=== PATIENT | female | born 1985 | race African-American/Black ===

== ENCOUNTER 2017-10-30 18:33 | Observation (INO) | payer SELFPAY ==
[2017-10-30 19:04] VITALS: BP 123/58; PULSE 57; RESP 19; TEMP 98; O2SAT 99
[2017-10-30 19:22] VITALS: BP 110/70; PULSE 69; RESP 18; O2SAT 100
--- NOTE | 2017-10-30 19:30 | PD ---
HPI Chief Complaint: Chest Pain Time Seen by Provider: 19:20 Travel History International Travel<30 days: No Contact w/Intl Traveler<30days: No Traveled to known affect area: No History of Present Illness HPI The patient is a 31 year old female who presents to the [facility] emergency department with a history of chest pain that she reports began after awakening from a nap approximately an hour and 50 minutes ago. The patient reports that the pain is in the center of her chest over sternum and radiates into bilateral breasts. She reports that the sensation is both a pressure sensation and a burning sensation. She reports that it is worse with activity. She reports having a sensation of shortness of breath with it. She reports having chronic cough related to her smoking that is no worse than usual and without any productivity. She denies having any sore throat, nasal discharge, or head congestion associated with this. The patient denies having any prior history of heart disease, hypertension, hyperlipidemia, or diabetes mellitus. She does report that she smokes 2 black and mild cigarettes daily. She reports that she also is on medical cannabis for a stress disorder. She recently moved to the area from [place]. She has not established with a local primary care physician. She denies any prior history of DVT or PE. She denies any lower extremity edema, calf pain, or erythema. On review of systems otherwise, she denies having any known recent fevers, neck pain, abdominal pain, nausea, vomiting, diarrhea, urinary symptoms, or neurologic symptoms. LMP: Ended 3 days ago. PFSH Past Medical History Narrative Medical The patient's past medical history is significant for a reported stress disorder treated with medical cannabis. Medical History: Denies Significant Hx Asthma: Yes Influenza Vaccination: No ?: Not LMP: 10/22/2017 : 0 Past Surgical History Narrative Surgical The patient's past surgical history is significant for left leg surgery at 20 years of age. Social History Alcohol Use: No Tobacco Use: Yes (BLACK AND MILDS 1-2 PER DAY) Substance Use: Yes (MARIJUANA) Allergies-Medications (Allergen,Severity, Reaction): Coded Allergies: iodine (Verified Allergy, Severe, hives, 10/30/17) Reported Meds & Prescriptions Reported Meds & Active Scripts Active No Active Prescriptions or Reported Medications Review of Systems Except as stated in HPI: all other systems reviewed are Neg General / Constitutional: No: Fever Eyes: No: Visual changes HENT: No: Headaches, Congestion Cardiovascular: Positive: Chest Pain or Discomfort, Dyspnea on exertion, No: Diaphoresis Respiratory: Positive: Cough, Shortness of Breath Gastrointestinal: No: Nausea, Vomiting, Diarrhea, Abdominal Pain Genitourinary: No: Dysuria Musculoskeletal: No: Pain Skin: No Rash Neurologic: No: Weakness, Focal Abnormalities, Change in Mentation, Slurred Speech, Sensory Disturbance Psychiatric: No: Depression Endocrine: No: Polydipsia Hematologic/Lymphatic: No: Easy Bruising Physical Exam Narrative General: The patient is a well-developed well-nourished female in no acute distress. Head and Neck exam: Head is normocephalic atraumatic. Eyes: EOMI, pupils are equal round and reactive to light. Nose: Midline septum with pink mucous membranes Mouth: Dentition unremarkable. Moist mucus membranes. Posterior oropharynx is not erythematous. No tonsillar hypertrophy. Uvula midline. Airway patent. Neck: No palpable lymphadenopathy. No nuchal rigidity. No thyromegaly. Cardiovascular: Regular rate and rhythm without murmurs, gallops, or rubs. No pulse deficit to the extremities on simultaneous auscultation and palpation of her radial artery. The patient reports chest wall tenderness on palpation along the sternum bilaterally, sternal borders. There is no step-off or crepitus. No erythema or ecchymosis. She reports the pain is similar to the pain she has been experiencing when I palpate the area. Lungs: Clear to auscultation bilaterally. No wheezes, rhonchi, or rales. Abdomen: Soft, without tenderness to palpation in all 4 quadrants of the abdomen. No guarding, rebound, or rigidity. Normal bowel sounds are audible. No tenderness on palpation of McBurney's point. Extremities: No clubbing, cyanosis, or edema. 2+ pulses in all 4 extremities. No calf tenderness on palpation. Negative Homans sign. Back: No costovertebral angle tenderness to palpation. Neurologic Exam: Grossly nonfocal. Skin Exam: No rash noted. Intact skin that is warm and dry. Data Data Last Documented VS Vital Signs Date Time Temp Pulse Resp B/P (MAP) Pulse Ox O2 Delivery O2 Flow Rate FiO2 10/30/17 19:22 69 18 110/70 (83) 100 Room Air 10/30/17 19:04 98.0 Orders Orders Electrocardiogram (10/30/17:) Complete Blood Count With Diff (10/30/17:) Comprehensive Metabolic Panel (10/30/17) Creatine Kinase (Cpk) (10/30/17:) Ckmb (Isoenzyme) Profile (10/30/17:) Troponin I (10/30/17:) B-Type Natriuretic Peptide (10/30/17:) Lipase (10/30/17:) Chest, Single Ap (10/30/17:) Iv Access Insert/Monitor (10/30/17) Ecg Monitoring (10/30/17) Oximetry (10/30/17) Ed Urine Pregnancytest Poc (10/30/17:) CKMB (10/30/17:) CKMB% (10/30/17:) Blood Glucose (10/30/17 20:56) Ketorolac Inj (Toradol Inj) (10/30/17 21:00) Aspirin Chew (Aspirin Chew) (10/30/17 21:15) Nitroglycerin Sl (Nitrostat Sl) (10/30/17 21:15) Admit Order (Ed Use Only) (10/30/17 21:08) Labs Laboratory Tests Test 10/30/17: White Blood Count 8.8 TH/MM3 Red Blood Count 4.23 MIL/MM3 Hemoglobin 14.2 GM/DL Hematocrit 41.2 % Mean Corpuscular Volume 97.3 FL Mean Corpuscular Hemoglobin 33.6 PG Mean Corpuscular Hemoglobin Concent 34.5 % Red Cell Distribution Width 13.3 % Platelet Count 249 TH/MM3 Mean Platelet Volume 7.9 FL Neutrophils (%) (Auto) 64.4 % Lymphocytes (%) (Auto) 25.4 % Monocytes (%) (Auto) 9.6 % Eosinophils (%) (Auto) 0.2 % Basophils (%) (Auto) 0.4 % Neutrophils # (Auto) 5.7 TH/MM3 Lymphocytes # (Auto) 2.2 TH/MM3 Monocytes # (Auto) 0.8 TH/MM3 Eosinophils # (Auto) 0.0 TH/MM3 Basophils # (Auto) 0.0 TH/MM3 CBC Comment DIFF FINAL Differential Comment Blood Urea Nitrogen 6 MG/DL Creatinine 0.88 MG/DL Random Glucose 61 MG/DL Total Protein 7.0 GM/DL Albumin 3.6 GM/DL Calcium Level 8.8 MG/DL Alkaline Phosphatase 70 U/L Aspartate Amino Transf (AST/SGOT) 23 U/L Alanine Aminotransferase (ALT/SGPT) 18 U/L Total Bilirubin 0.5 MG/DL Sodium Level 140 MEQ/L Potassium Level 4.2 MEQ/L Chloride Level 108 MEQ/L Carbon Dioxide Level 24.3 MEQ/L Anion Gap 8 MEQ/L Estimat Glomerular Filtration Rate 76 ML/MIN Total Creatine Kinase 138 U/L Creatine Kinase MB 0.5 NG/ML Troponin I LESS THAN 0.02 NG/ML B-Type Natriuretic Peptide 19 PG/ML Lipase 93 U/L MDM Medical Decision Making Medical Screen Exam Complete: Yes Emergency Medical Condition: Yes Medical Record Reviewed: Yes Differential Diagnosis Costochondritis, versus muscle strain, versus acute coronary syndrome, versus pulmonary embolism, versus acid reflux, versus pneumothorax. Narrative Course During the course of the patient's emergency department visit, the patient's history, examination, and differential diagnosis were reviewed with the patient. The patient was placed on a monitoring engineer with oximetry and frequent blood pressure monitoring. The patient had IV access obtained and blood work sent for analysis. An EKG was done on arrival. The patient's EKG shows a sinus rhythm heart rate of 63, QRS duration is 90 ms, QTC [address] segment elevation is noted. T waves are inverted in V1, lead III. Wells Score is 0. Therefore the patient is considered to be low risk for pulmonary embolism. PERC Rule is 0. Therefore pulmonary embolism is considered to be extremely unlikely and further testing is not indicated. The patient was initially provided Toradol 15 mg IV. Patient continued to have discomfort and was given aspirin 324 mg p.o. 1, nitroglycerin sublingual p.o. 1. The patient's laboratory studies were reviewed and remarkable for a white count of 8.8, hemoglobin 14.2, platelets 249 with 9.6 monocytes, CMP is remarkable for a chloride 108, BUN 6, glucose 61, however on reexamination the patient continues to be awake and alert and asymptomatic, and Accu-Chek at the bedside will be repeated for validity. Cardiac enzymes within normal limits, BNP 19, lipase 93 Radiology studies were reviewed and remarkable for Last Impressions Chest X-Ray 10/30/171921 Signed Impressions: Service Date/Time: Monday, October 30, 2017 19:44 - CONCLUSION: 1. Radiopaque density projecting at approximately T3 level in the upper mid thorax, presumed to be external to the patient. However, this has the appearance of an earring retainer and may have been ingested. Clinical correlation is recommended. 2. No acute cardiopulmonary disease. Meng Molina MD The radiopaque density noted at the T3 level is related to a chest wall piercing. As the patient's chest pain is associated with activity and the patient recently moved to the area and has not established with a primary care physician I did offer admission to the chest pain center for rule out serial cardiac enzyme protocol followed by consideration of stress testing. The patient reports that she would prefer to be admitted for observation as she has no place to follow-up currently. The patient's results were discussed with the patient, including the plan of care. I explained that further testing and/ or monitoring is indicated based on the patient's history, examination, and/ or laboratory findings. Therefore, I recommended admission for additional evaluation. The patient expressed understanding and was agreeable with this plan. The patient was admitted to the hospital in stable condition and sent to a bed under the care of chest pain center. Diagnosis Primary Impression: Chest pain, rule out acute myocardial infarction Admitting Information Admitting Physician Requests: Observation Scripts No Active Prescriptions or Reported Meds Micaela Brown MD October 30, 2017 19:30
[2017-10-30 19:40] LABS: AUTOMATED NEUTROPHIL # 5.7 TH/MM3 (1.8-7.7); BASOPHIL % 0.4 % (0.0-2.0); EOSINOPHIL % 0.2 % (0.0-4.0); HEMATOCRIT 41.2 % (35.0-46.0); HEMOGLOBIN 14.2 GM/DL (11.6-15.3); LYMPH % 25.4 % (9.0-44.0); LYMPHOCYTE # 2.2 TH/MM3 (1.0-4.8); MEAN CELL VOLUME 97.3 FL (80.0-100.0); MEAN CORPUSCULAR HEMOGLOBIN 33.6 PG (27.0-34.0); MEAN CORPUSCULAR HGB CONC 34.5 % (32.0-36.0); MEAN PLATELET VOLUME 7.9 FL (7.0-11.0); MONO % 9.6 % (0.0-8.0); MONOCYTE # 0.8 TH/MM3 (0-0.9); NEUT % 64.4 % (16.0-70.0); PLATELET COUNT 249 TH/MM3 (150-450); RED BLOOD COUNT 4.23 MIL/MM3 (4.00-5.30); RED CELL DISTRIBUTION WIDTH 13.3 % (11.6-17.2); WHITE BLOOD COUNT 8.8 TH/MM3 (4.0-11.0)
[2017-10-30 20:05] LABS: ALBUMIN 3.6 GM/DL (3.4-5.0); ALT (GPT) 18 U/L (10-53); AST (GOT) 23 U/L (15-37); BICARBONATE 24.3 MEQ/L (21.0-32.0); BLOOD UREA NITROGEN 6 MG/DL (7-18); CALCIUM 8.8 MG/DL (8.5-10.1); CHLORIDE 108 MEQ/L (98-107); CREATININE 0.88 MG/DL (0.50-1.00); GLOMERULAR FILTRATION RATE 76 ML/MIN (>89); GLUCOSE,RANDOM 61 MG/DL (74-106); SODIUM (NA) 140 MEQ/L (136-145)
--- NOTE | 2017-10-30 20:07 | RADRPT ---
EXAM DATE/TIME: 10/30/2017 19:44 [facility] COMPARISON: No previous studies available for comparison. INDICATIONS : Midline chest pain. MEDICAL HISTORY : None. SURGICAL HISTORY : None. ENCOUNTER: Initial ACUITY: 1 day PAIN SCORE: 6/10 LOCATION: Chest, midline. FINDINGS: A single view of the chest demonstrates the lungs to be symmetrically aerated without evidence of mas s, infiltrate or effusion. The cardiomediastinal contours are unremarkable. Osseous structures are intact. Radiopaque density projecting in the upper mid thorax at approximately T3 level. CONCLUSION: 1. Radiopaque density projecting at approximately T3 level in the upper mid thorax, presumed to be ex ternal to the patient. However, this has the appearance of an earring retainer and may have been kamini sted. Clinical correlation is recommended. 2. No acute cardiopulmonary disease. Meng Molina MD on October 30, 2017 at 20:04 Board Certified Radiologist. This report was verified electronically.
[2017-10-30 20:10] LABS: ALKALINE PHOSPHATASE 70 U/L (45-117); TOTAL BILIRUBIN ADULT 0.5 MG/DL (0.2-1.0); TROPONIN I LESS THAN 0.02 NG/ML (0.02-0.05)
[2017-10-30] MEDS ORDERED: KETOROLAC TROMETHAMINE 30 MG/ML (IVP) VIAL IV PUSH ONE (21:00)
[2017-10-30] MEDS ORDERED: NITROGLYCERIN 0.4 MG SL 25 TABS/BTL SL ONE (21:15)
[2017-10-30] MEDS ORDERED: ASPIRIN 81 MG CHEW TAB CHEW ONE (21:15)
[2017-10-30 21:54] VITALS: BP 130/62; PULSE 60; RESP 18; O2SAT 100
--- NOTE | 2017-10-30 22:36 | EKG ---
Date Performed: 10/30/2017 Time Performed: 19:17:08 PTAGE: 31 years EKG: Sinus rhythm NORMAL ECG NO PREVIOUS TRACING DOCTOR: Anton Gutiérrez Interpretating Date/Time 10/30/2017 22:35:52
[2017-10-30] MEDS ORDERED: SODIUM CHLORIDE 0.9% FLUSH 10 ML FLUSH IV FLUSH PRN (23:00)
[2017-10-30] MEDS ORDERED: ACETAMINOPHEN 500 MG CPLT PO PRN (23:00)
[2017-10-31] VITALS (7 sets, daily range): BP systolic 102–119; BP diastolic 56–66; PULSE 45–64; RESP 16–18; TEMP 98–98.9; O2SAT 99–100
[2017-10-31 01:19] LABS: TROPONIN I LESS THAN 0.02 NG/ML (0.02-0.05)
[2017-10-31 02:47] LABS: TROPONIN I LESS THAN 0.02 NG/ML (0.02-0.05)
--- NOTE | 2017-10-31 08:29 | HHI.HP ---
HPI Primary Care Physician No Primary Care Physician Chief Complaint Chest pain History of Present Illness This is a 31-year-old female that presents to ED via private vehicle with a complaint of developing chest discomfort around 3:00 or 4:00 yesterday afternoon after waking up. She describes as a central chest heaviness. Was initially short of breath. Denies nausea or diaphoresis. States the discomfort has been a constant. Worsened when she presses on the area or certain twisting movements. States she is never had this discomfort before. Denies recent illness. Denies fevers or chills. Denies recent travel. Denies . Denies history of CAD. No known family history of CAD. Review of Systems General: Patient denies fevers, chills, and recent travel. HEENT: Patient denies headache, sore throat, difficulty swallowing. Cardiovascular: Has the chest discomfort as mentioned above. Denies sensation of heart beating rapidly or irregularly. No syncope. Respiratory: Initially a little short of breath. Denies inspirational chest discomfort. Denies coughing wheezing or hemoptysis. GI: Patient denies nausea, vomiting, diarrhea, abdominal pain, bloody stools. Musculoskeletal: Patient denies joint pain or edema. Denies calf pain or edema. Neurovascular: Patient denies numbness, tingling, weakness in extremities. Denies headache. Endocrine: Denies polyuria and polydipsia. Hematologic: Denies easy bruising. Skin: Denies rash or itching. Past Family Social History Allergies: Coded Allergies: iodine (Verified Allergy, Severe, hives, 10/30/17) Past Medical History Asthma. Tobacco abuse. Denies hypertension, hyperlipidemia, diabetes, and CAD. Past Surgical History Left leg surgery at age 20. Reported Medications Reported Meds & Active Scripts Active No Active Prescriptions or Reported Medications Active Ordered Medications Current Medications Medications (Trade) Dose Ordered Sig/Glenda Route Start Time Stop Time Status Last Admin (NS Flush) 2 ml UNSCH PRN IV FLUSH 10/30/17 23:00 (NS Flush) 2 ml BID IV FLUSH 10/31/17 09:00 (Tylenol) 500 mg Q4H PRN PO 10/30/17 23:00 Family History Denies family history of CAD. Social History Smokes on average 2 cigars a day for last 12 years. Smokes marijuana couple times a day as well for at least the last 12 years. Drinks a glass of wine maybe 2-3 times per month. 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 Physical Exam Vital Signs Vital Signs Date Time Temp Pulse Resp B/P (MAP) Pulse Ox O2 Delivery O2 Flow Rate FiO2 10/31/17 08:15 98.3 55 18 108/56 (73) 100 10/31/17 06:32 21 10/31/17 04:53 98.0 59 16 102/59 (73) 100 10/31/17 04:29 53 10/31/17 00:46 60 10/31/17 00:34 98.9 64 16 111/66 (81) 99 10/31/17 00:07 57 18 119/56 (77) 100 10/30/17 22:50 18 10/30/17 22:01 18 10/30/17 21:54 60 18 130/62 (84) 100 Room Air 10/30/17 19:22 69 18 110/70 (83) 100 Room Air 10/30/17 19:15 69 18 Room Air 10/30/17 19:04 98.0 57 19 123/58 (79) 99 Physical Exam GENERAL: Patient is examined with a female tool crib supervisor at bedside. This is a well -nourished, well-developed patient, in no apparent distress. Patient speaks in clear complete sentences. Patient is pleasant. HEENT: Head is atraumatic and normocephalic. Neck is supple without lymphadenopathy and trachea is midline. No JVD or carotid bruits. CARDIOVASCULAR: Regular rate and rhythm without murmurs, gallops, or rubs. RESPIRATORY: Clear to auscultation. Breath sounds equal bilaterally. No wheezes , rales, or rhonchi. Chest wall is tender, pressing on the area worsens the symptoms are brought her to the hospital. No use of accessory muscles. GASTROINTESTINAL: Abdomen is nontender, nondistended. Abdomen soft. No obvious pulsatile mass or bruit. No CVA tenderness. Strong femoral pulses bilaterally. Normal bowel sounds in all quadrants. MUSCULOSKELETAL: Patient is moving upper and lower extremities freely. No calf tenderness or edema, no Homans sign. Strong pulses in upper and lower extremities. NEUROLOGICAL: Patient is alert and oriented. Cranial nerves 2-12 are grossly intact. No focal deficits and speech is clear. SKIN: No rash and turgor is normal. Laboratory Laboratory Tests Test 10/30/17 19:25 10/30/17 23:49 10/31/17 02:00 White Blood Count 8.8 Red Blood Count 4.23 Hemoglobin 14.2 Hematocrit 41.2 Mean Corpuscular Volume 97.3 Mean Corpuscular Hemoglobin 33.6 Mean Corpuscular Hemoglobin Concent 34.5 Red Cell Distribution Width 13.3 Platelet Count 249 Mean Platelet Volume 7.9 Neutrophils (%) (Auto) 64.4 Lymphocytes (%) (Auto) 25.4 Monocytes (%) (Auto) 9.6 Eosinophils (%) (Auto) 0.2 Basophils (%) (Auto) 0.4 Neutrophils # (Auto) 5.7 Lymphocytes # (Auto) 2.2 Monocytes # (Auto) 0.8 Eosinophils # (Auto) 0.0 Basophils # (Auto) 0.0 CBC Comment DIFF FINAL Differential Comment Blood Urea Nitrogen 6 Creatinine 0.88 Random Glucose 61 Total Protein 7.0 Albumin 3.6 Calcium Level 8.8 Alkaline Phosphatase 70 Aspartate Amino Transf (AST/SGOT) 23 Alanine Aminotransferase (ALT/SGPT) 18 Total Bilirubin 0.5 Sodium Level 140 Potassium Level 4.2 Chloride Level 108 Carbon Dioxide Level 24.3 Anion Gap 8 Estimat Glomerular Filtration Rate 76 Total Creatine Kinase 138 101 104 Creatine Kinase MB 0.5 LESS THAN 0.5 LESS THAN 0.5 Troponin I LESS THAN 0.02 LESS THAN 0.02 LESS THAN 0.02 B-Type Natriuretic Peptide 19 Lipase 93 Result Diagram: 10/30/17192410/30/171924 Imaging Last 48 hours Impressions Chest X-Ray 10/30/171921 Signed Impressions: Service Date/Time: Monday, October 30, 2017 19:44 - CONCLUSION: 1. Radiopaque density projecting at approximately T3 level in the upper mid thorax, presumed to be external to the patient. However, this has the appearance of an earring retainer and may have been ingested. Clinical correlation is recommended. 2. No acute cardiopulmonary disease. Meng Molina MD The radiopaque foreign body is related to a chest wall piercing. Course EKGs are sinus rhythm with inverted T waves in lead V1, V2 and V3 as well as lead III. No significant ST segment depressions or elevations. Caprini VTE Risk Assessment Caprini VTE Risk Assessment: No/Low Risk (score <= 1) Caprini Risk Assessment Model Point Value = 1 Point Value = 2 Point Value = 3 Point Value = 5 Age 41-60 Minor surgery BMI > 25 kg/m2 Swollen legs Varicose veins or History of unexplained or recurrent spontaneous Oral contraceptives or hormone replacement Sepsis (< 1 month) Serious lung disease, including pneumonia (< 1 month) Abnormal pulmonary function Acute myocardial infarction Congestive heart failure (< 1 month) History of inflammatory bowel disease Medical patient at bed rest Age 61-74 Arthroscopic surgery Major open surgery (> 45 min) Laparoscopic surgery (> 45 min) Malignancy Confined to bed (> 72 hours) Immobilizing plaster cast Central venous access Age >= 75 History of VTE Family history of VTE Factor V Leiden Prothrombin [id number] Lupus anticoagulant Anticardiolipin antibodies Elevated serum homocysteine Heparin-induced thrombocytopenia Other congenital or acquired thrombophilia Stroke (< 1 month) Elective arthroplasty Hip, pelvis, or leg fracture Acute spinal cord injury (< 1 month) Prophylaxis Regimen Total Risk Factor Score Risk Level Prophylaxis Regimen 0-1 Low Early ambulation 2 Moderate Order ONE of the following: *Sequential Compression Device (SCD) *Heparin 5000 units SQ BID 3-4 Higher Order ONE of the following medications: *Heparin 5000 units SQ TID *Enoxaparin/Lovenox 40 mg SQ daily (WT < 150 kg, CrCl > 30 mL/min) *Enoxaparin/Lovenox 30 mg SQ daily (WT < 150 kg, CrCl > 10-29 mL/min) *Enoxaparin/Lovenox 30 mg SQ BID (WT < 150 kg, CrCl > 30 mL/min) AND/OR *Sequential Compression Device (SCD) 5 or more Highest Order ONE of the following medications: *Heparin 5000 units SQ TID (Preferred with Epidurals) *Enoxaparin/Lovenox 40 mg SQ daily (WT < 150 kg, CrCl > 30 mL/min) *Enoxaparin/Lovenox 30 mg SQ daily (WT < 150 kg, CrCl > 10-29 mL/min) *Enoxaparin/Lovenox 30 mg SQ BID (WT < 150 kg, CrCl > 30 mL/min) AND *Sequential Compression Device (SCD) Assessment and Plan Assessment and Plan * Atypical chest pain: Patient has had serial cardiac enzymes and EKGs for ruling out purposes. She will be seen by Dr. Lepe of cardiology in the chest pain center. Her discomforts appear to be musculoskeletal in nature. There are reproducible when palpating the area. Patient likely will be discharged home without any further testing with instructions to use anti-inflammatories. Follow up PCP. Quit smoking. Return to ED for interval issues. * Tobacco abuse: Patient has been counseled on importance of smoking cessation. Patient is stable at this time. She is agreeable to this plan. Yared Iniguez October 31, 2017 08:29
--- NOTE | 2017-10-31 08:48 | PD.CARD.PN ---
Subjective Subjective Remarks The patient was discussed and reviewed with the physician band lining bander. The documented information was reviewed, the lab and radiology reviewed and then the patient was seen and examined personally. i am in agreement with documentation. The evaluation and plan was determined. She was ruled out and will be discharged to OP FU for her breast lump. Objective Medications Current Medications Medications (Trade) Dose Ordered Sig/Glenda Route Start Time Stop Time Status Last Admin (NS Flush) 2 ml UNSCH PRN IV FLUSH 10/30/17 23:00 (NS Flush) 2 ml BID IV FLUSH 10/31/17 09:00 (Tylenol) 500 mg Q4H PRN PO 10/30/17 23:00 Vital Signs / I&O Vital Signs Date Time Temp Pulse Resp B/P (MAP) Pulse Ox O2 Delivery O2 Flow Rate FiO2 10/31/17 08:15 98.3 55 18 108/56 (73) 100 10/31/17 06:32 21 10/31/17 04:53 98.0 59 16 102/59 (73) 100 10/31/17 04:29 53 10/31/17 00:46 60 10/31/17 00:34 98.9 64 16 111/66 (81) 99 10/31/17 00:07 57 18 119/56 (77) 100 10/30/17 22:50 18 10/30/17 22:01 18 10/30/17 21:54 60 18 130/62 (84) 100 Room Air 10/30/17 19:22 69 18 110/70 (83) 100 Room Air 10/30/17 19:15 69 18 Room Air 10/30/17 19:04 98.0 57 19 123/58 (79) 99 Physical Exam As recorded. Skin multiple tattoos and piercing including two in upper chest. A small lump was palpated in the right upper quadrant of the left breast. She is also quite tender along the gotti chondral junctions and the mid pectoralis. CV RSR with no gallop rub or m Abd is nontender with no masses Laboratory Laboratory Tests Test 10/30/17 19:25 10/30/17 23:49 10/31/17 02:00 White Blood Count 8.8 TH/MM3 Red Blood Count 4.23 MIL/MM3 Hemoglobin 14.2 GM/DL Hematocrit 41.2 % Mean Corpuscular Volume 97.3 FL Mean Corpuscular Hemoglobin 33.6 PG Mean Corpuscular Hemoglobin Concent 34.5 % Red Cell Distribution Width 13.3 % Platelet Count 249 TH/MM3 Mean Platelet Volume 7.9 FL Neutrophils (%) (Auto) 64.4 % Lymphocytes (%) (Auto) 25.4 % Monocytes (%) (Auto) 9.6 % Eosinophils (%) (Auto) 0.2 % Basophils (%) (Auto) 0.4 % Neutrophils # (Auto) 5.7 TH/MM3 Lymphocytes # (Auto) 2.2 TH/MM3 Monocytes # (Auto) 0.8 TH/MM3 Eosinophils # (Auto) 0.0 TH/MM3 Basophils # (Auto) 0.0 TH/MM3 CBC Comment DIFF FINAL Differential Comment Blood Urea Nitrogen 6 MG/DL Creatinine 0.88 MG/DL Random Glucose 61 MG/DL Total Protein 7.0 GM/DL Albumin 3.6 GM/DL Calcium Level 8.8 MG/DL Alkaline Phosphatase 70 U/L Aspartate Amino Transf (AST/SGOT) 23 U/L Alanine Aminotransferase (ALT/SGPT) 18 U/L Total Bilirubin 0.5 MG/DL Sodium Level 140 MEQ/L Potassium Level 4.2 MEQ/L Chloride Level 108 MEQ/L Carbon Dioxide Level 24.3 MEQ/L Anion Gap 8 MEQ/L Estimat Glomerular Filtration Rate 76 ML/MIN Total Creatine Kinase 138 U/L 101 U/L 104 U/L Creatine Kinase MB 0.5 NG/ML LESS THAN 0.5 NG/ML LESS THAN 0.5 NG/ML Troponin I LESS THAN 0.02 NG/ML LESS THAN 0.02 NG/ML LESS THAN 0.02 NG/ML B-Type Natriuretic Peptide 19 PG/ML Lipase 93 U/L Imaging Last 24 hours Impressions Chest X-Ray 10/30/171921 Signed Impressions: Service Date/Time: Monday, October 30, 2017 19:44 - CONCLUSION: 1. Radiopaque density projecting at approximately T3 level in the upper mid thorax, presumed to be external to the patient. However, this has the appearance of an earring retainer and may have been ingested. Clinical correlation is recommended. 2. No acute cardiopulmonary disease. Meng Molina MD Assessment and Plan Assessment and Plan Has ruled out with ASSET PROTECTION MANAGER protocol. She has very low risk and clearly MS pain along with a small breast mass. Disch for OP FU with PCP or A P SUPERVISOR Jevon Lepe MD October 31, 2017 08:48
--- NOTE | 2017-10-31 08:55 | HHI.DCPOC ---
Discharge Care Plan Diagnosis: (1) Chest pain, atypical (2) Tobacco abuse Goals to Promote Your Health * To prevent worsening of your condition and complications * To maintain your health at the optimal level Directions to Meet Your Goals Take your medications as prescribed Follow your dietary instruction Follow activity as directed Keep your appointments as scheduled Take your immunizations and boosters as scheduled If your symptoms worsen call your PCP, if no PCP go to Urgent Care Center or Emergency Room Smoking is Dangerous to Your Health. Avoid second hand smoke Call the 24-hour hour crisis hotline for domestic abuse at [facility] October 31, 2017 08:55
[2017-10-31] MEDS ORDERED: SODIUM CHLORIDE 0.9% FLUSH 10 ML FLUSH IV FLUSH SCH (09:00)
--- NOTE | 2017-10-31 09:01 | EKG ---
Date Performed: 10/30/2017 Time Performed: 23:44:59 PTAGE: 31 years EKG: SINUS BRADYCARDIA BORDERLINE ECG NO CHANGE PREVIOUS TRACING : 10/30/2017 19.17 DOCTOR: Jevon Lepe Interpretating Date/Time 10/31/2017 08:59:57
--- NOTE | 2017-10-31 09:01 | EKG ---
Date Performed: 10/31/2017 Time Performed: 01:57:56 PTAGE: 31 years EKG: SINUS BRADYCARDIA BORDERLINE ECG NO SIG CHANGE PREVIOUS TRACING : 10/30/2017 19.17 DOCTOR: Jevon Lepe Interpretating Date/Time 10/31/2017 08:59:34
== END 2017-10-31 12:53 | disposition home or self-care (01) ==
LOC: NEPE 18:33 → NEDA 21:10 → NEPGCP 10-31 00:13
DX: R07.89 Other chest pain (principal); R06.02 Shortness of breath; R00.1 Bradycardia, unspecified; N63.0 Unspecified lump in unspecified breast; J45.909 Unspecified asthma, uncomplicated; F17.290 Nicotine dependence, other tobacco product, uncomplicated; F12.90 Cannabis use, unspecified, uncomplicated; Z79.82 Long term (current) use of aspirin
CPT/HCPCS: 71045; 80053; 82550; 82552; 83690; 83880; 84484; 84703; 85025; 93005; 96374; 99285; G0378; J1885